=== PATIENT | female | born 1930 | race Caucasian/White ===

== ENCOUNTER 2020-01-31 15:13 | Emergency (ER) | payer MEDICARE, OTHER ==
[~2020-01-31] VITALS: Ht 152.4 cm; Wt 47.6 kg
[~2020-01-31 15:13] MED LIST: ADULT LOW DOSE81 MG; AMLODIPINE BESYL5 MG; FERRO-TIME325 MG; FISH OIL 1,0001 EAC5; LEVOTHYROXIN0.025 MG OR; OCUVITE TABLET1 EAC1; PRILOSEC 20 MG20 MG PO; TRAMADOL 50 MG50 MG; TRAMADOL 50 MG50 MG PO; TRUSOPT5 ML; VITAMIN B-12500 MCG
[2020-01-31] MEDS ORDERED: CELEXA 10 MG TA10 M1 PO (15:31)
[2020-01-31] MEDS ORDERED: PROBIOTIC1 EAC7 PO (15:31)
[2020-01-31] MEDS ORDERED: ASA81BEC PO (15:31)
[2020-01-31] MEDS ORDERED: COLACE100 MG PO (15:31)
[2020-01-31] MEDS ORDERED: DORZOLAMIDE 2%10 ML OPHTHALMIC (15:32)
[2020-01-31] MEDS ORDERED: LEVO-T50 MCG PO (15:32)
[2020-01-31] MEDS ORDERED: MELATONIN3 M1 PO (15:32)
[2020-01-31] MEDS ORDERED: ZYPREXA2.5 MG PO (15:33)
[2020-01-31] MEDS ORDERED: REFRESH CLASSI1 EACH OPHTHALMIC (15:33)
[2020-01-31 15:43] LABS: ABSOLUTE BASOPHILS 0.1 thou/uL (0.0-0.2); ABSOLUTE EOSINOPHILS 0.6 thou/uL (0.0-0.7); ABSOLUTE LYMPHOCYTES 2.1 thou/uL (0.8-5.3); ABSOLUTE MONOCYTES 1.3 thou/uL (0.0-1.2); ABSOLUTE NEUTROPHILS 12.3 thou/uL (1.6-8.1); BASOPHILS 0.5 %; EOSINOPHILS 3.4 %; HEMATOCRIT 33.8 % (37.0-47.0); HEMOGLOBIN 10.6 gm/dL (12.0-15.0); LYMPHOCYTES 12.6 %; MCH 21.6 pg (26.0-34.0); MCHC 31.5 g/dL (28.0-37.0); MCV 68.6 fL (80.0-100.0); MONOCYTES 8.1 %; MPV 8.4 fl. (7.2-11.1); NUCLEATED RBCS 0 /100WBC; PLATELET COUNT* 336 thou/uL (150-400); POLYS 75.4 %; RBC 4.92 mil/uL (4.20-5.00); RDW-CV 20.1 % (10.5-14.5); WBC 16.4 thou/uL (4.0-11.0)
[2020-01-31 15:55] LABS: CALCIUM 9.1 mg/dL (8.5-10.1); POTASSIUM 3.7 mmol/L (3.5-5.1)
[2020-01-31 16:00] LABS: ALBUMIN 3.1 g/dL (3.4-5.0); PROTIME 10.9 Seconds (9.20-11.50); TOTAL BILIRUBIN 0.8 mg/dL (<0.1-1.0)
[2020-01-31 16:33] LABS: URINE BILIRUBIN NEGATIVE (Negative); URINE BLOOD NEGATIVE (Negative); URINE CLARITY CLEAR; URINE COLOR YELLOW; URINE GLUCOSE-RANDOM NEGATIVE (Negative); URINE KETONES NEGATIVE (Negative); URINE LEUKOCYTES-REFLEX NEGATIVE (Negative); URINE NITRITE-REFLEX NEGATIVE (Negative); URINE PROTEIN NEGATIVE (Negative); URINE UROBILINOGEN 0.2 E.U./dl (0.2-1.0)
[2020-01-31 16:39] LABS: ANISOCYTOSIS 2+; HYPOCHROMASIA 2+; MICROCYTES 2+; OVALOCYTES Occasional; PLATELET ESTIMATE ADEQUATE; TARGET CELLS Occasional
[2020-01-31 20:25] VITALS: BP 143/72
--- NOTE | 2020-02-01 12:45 | EKG ---
[place] [address] ELECTROCARDIOGRAM REPORT Name: ERASMO HUNTER Room: [facility]#: [id number] Admission: 01/31/20 Attend Phys: Discharge: 01/31/20 Date of : [birth year] Date of Service: 01/31/20 1613 Report #: [id number] THIS REPORT FOR: //name// [facility] ED Test Date: 2020-01-31 Test Time: 16:13:03 Pat Name: ERASMO HUNTER Department: Room: Gender: Bilingual Teacher Assistant: [place] : [id number] Requested By: Azar Busby Order Number: [id number] MD: Yunier Fenton Measurements Intervals [place] Rate: 84 P: 15 WI: 166 QRS: -61 QRSD: 105 T: 54 QT: 389 QTc: 460 Interpretive Statements Sinus rhythm Left anterior fascicular block Anterior Q waves, possibly due to LVH Compared to ECG 03/08/2010 08:13:27 No significant changes noted Electronically Signed On 02-01-2020 12:45:34 [employer] by Yunier Fenton [email or web address] <ELECTRONICALLY SIGNED> By: Yunier Fenton MD, FACC 02/01/20 1245 1613 1613 Yunier Fenton MD, FAC /EPI
== END 2020-01-31 20:25 | disposition short-term general hospital (02) ==
LOC: M.ERS 15:13
PROVIDERS: Family Medicine
DX: S32.591A Other specified fracture of right pubis, initial encounter for closed fracture (principal); R53.1 Weakness; I10 Essential (primary) hypertension; E03.9 Hypothyroidism, unspecified; E78.00 Pure hypercholesterolemia, unspecified; M06.9 Rheumatoid arthritis, unspecified; Z90.11 Acquired absence of right breast and nipple; Z90.89 Acquired absence of other organs; Z85.89 Personal history of malignant neoplasm of other organs and systems; Z88.8 Allergy status to other drugs, medicaments and biological substances; W18.39XA Other fall on same level, initial encounter; Y93.89 Activity, other specified; Y92.89 Other specified places as the place of occurrence of the external cause; Y99.8 Other external cause status